=== PATIENT | male | born 1970 | race Caucasian/White ===

== ENCOUNTER 2025-04-27 12:54 | Inpatient (IN) | payer OTHER ==
[~2025-04-27] VITALS: Ht 180.3 cm; Wt 104.4 kg
[2025-04-27 13:58] LABS: PLATELET COUNT (AUTO) 201 K/uL (150-450); RED BLOOD CELL COUNT(AUTO) 6.38 MIL/uL (4.50-5.90); RED CELL DISTRIBUTION WIDTH 14.8 % (11.5-14.5); WHITE BLOOD COUNT (AUTO) 7.2 K/uL (4.5-11.0)
[2025-04-27 14:00] LABS: CALCIUM, TOTAL 8.5 mg/dL (8.8-10.5); CREATININE 1.4 mg/dL (0.60-1.30); GLOMERULAR FILTR. RATE CALC 53.0 mL/min (>60); GLUCOSE,RANDOM 190.0 mg/dL (70-110); SODIUM SERUM 132.0 mmol/L (136-145); UREA NITROGEN, BLOOD 34.0 mg/dL (7-18)
[2025-04-27] MEDS: SODIUM CHLORIDE 0.9% 1,000 ML IV ONE (15:34)
[2025-04-27 15:39] LABS: TROPONIN I-HIGH SENSITIVITY 25 ng/L (<76)
[2025-04-27 15:49] LABS: ASPARTATE AMINOTRANSFERASE 33.0 U/L (15-37); CREATINE KINASE, TOTAL ONLY 85.0 U/L (39-308); TOTAL PROTEIN, SERUM 7.8 g/dL (6.4-8.2)
[2025-04-27] MEDS ORDERED: NOREPINEPHRINE 8 MG/0.9 % NACL 250 ML IV PRN (18:45)
[2025-04-27] MEDS: FUROSEMIDE 20 MG/2 ML VIAL IVP ONE (18:50)
[2025-04-27 19:11] LABS: APPEARANCE,URINE CLEAR (CLEAR); GLUCOSE, URINE (UA) >=1000 mg/dL (NEGATIVE); LEUKOCYTE ESTERASE ,URINE NEGATIVE (NEGATIVE); NITRATE,URINE NEGATIVE (NEGATIVE); OCCULT BLOOD,URINE NEGATIVE (NEGATIVE); SPECIFIC GRAVITIY, URINE 1.011 (1.003-1.030)
[2025-04-27] MEDS ORDERED: SACU1TAB7 PO (19:13)
[2025-04-27] MEDS ORDERED: SPIR-37 PO (19:13)
[2025-04-27] MEDS ORDERED: VERI5TAB PO (19:13)
[2025-04-27] MEDS ORDERED: EMPA10TA3 PO (19:13)
[2025-04-27] MEDS ORDERED: FURO20TA5 PO (19:13)
[2025-04-27 19:33] LABS: SQUAMOUS EPITHELIAL CELL,UR Rare /LPF (None Seen)
[2025-04-27 19:58] LABS: TROPONIN I-HIGH SENSITIVITY 25 ng/L (<76)
[2025-04-27] MEDS ORDERED: ALBUMIN HUMAN 25%-25GM/100ML 100 ML IV ONE (21:00)
[2025-04-27] MEDS: SODIUM CHLORIDE 0.9% 250 ML IV ONE (21:21)
[2025-04-27] MEDS: ALBUMIN HUMAN 5%-12.5GM/250ML 250 ML IV ONE (21:26)
[2025-04-27 22:11] LABS: ALCOHOL, URINE DRUG SCREEN NEGATIVE (NEGATIVE); AMPHET/METH SCREEN,URINE POSITIVE (NEGATIVE); BARBITURATE SCREEN, URINE NEGATIVE (NEGATIVE); CANNABINOID SCREEN,URINE NEGATIVE (NEGATIVE); COCAINE SCREEN,URINE NEGATIVE (NEGATIVE); METHADONE SCREEN, URINE NEGATIVE (NEGATIVE)
[2025-04-27 22:16] LABS: PH,URINE DRUG SCREEN 5.0 (5.0-8.0)
[2025-04-27 23:38] LABS: TROPONIN I-HIGH SENSITIVITY 28 ng/L (<76)
[2025-04-27 23:47] LABS: LACTIC ACID 0.9 mmol/L (0.4-2.0)
[2025-04-28 04:33] VITALS: BP 100/72; PULSE 88; RESP 18; TEMP 97.5; O2SAT 92
[2025-04-28 07:21] VITALS: BP 107/72; PULSE 94; RESP 18; TEMP 97.5; O2SAT 94
[2025-04-28 11:21] VITALS: BP 96/82; PULSE 72; RESP 18; TEMP 97.3; O2SAT 96
[2025-04-28] MEDS ORDERED: MAGNESIUM HYDROXIDE SUSPENSION 30 ML UDCUP PO PRN (16:00)
[2025-04-28] MEDS ORDERED: BISACODYL 10 MG RECTAL RECTAL SUPPOSITORY PR PRN (16:00)
[2025-04-28] MEDS ORDERED: ZOLPIDEM TARTRATE 5 MG TABLET PO PRN (16:00)
[2025-04-28] MEDS ORDERED: HYDROCODONE/ACETAMINOPHEN 5-325 MG TABLET PO PRN (16:00)
[2025-04-28] MEDS ORDERED: IPRATROPIUM BROMIDE 0.5 MG/2.5 ML NEB SOLUTION NEB PRN (16:00)
[2025-04-28] MEDS ORDERED: ACETAMINOPHEN 325 MG TABLET PO PRN (16:00)
[2025-04-28] MEDS ORDERED: MORPHINE SULFATE 4 MG/ML SYRINGE IVP PRN (16:00)
[2025-04-28] MEDS ORDERED: ONDANSETRON HCL 4 MG/2 ML VIAL IVP PRN (16:00)
[2025-04-28] MEDS ORDERED: ALBUTEROL SULFATE 2.5 MG/0.5 ML NEB SOLUTION NEB PRN (16:00)
[2025-04-28] MEDS: HEPARIN SODIUM,PORCINE 5,000 UNITS/ML VIAL SQ SCH (16:06)
[2025-04-28] MEDS: FUROSEMIDE 40 MG/4 ML VIAL IVP ONE (16:06)
[2025-04-28] MEDS: EMPAGLIFLOZIN 10 MG TABLET PO SCH (16:06)
[2025-04-28 16:18] VITALS: BP 101/90; PULSE 79; RESP 18; TEMP 97.7; O2SAT 100
[2025-04-28] MEDS ORDERED: HEPARIN SODIUM,PORCINE 5,000 UNITS/ML VIAL IVP PRN ×2 (18:15)
[2025-04-28 18:39] LABS: PLATELET COUNT (AUTO) 180 K/uL (150-450); RED BLOOD CELL COUNT(AUTO) 6.03 MIL/uL (4.50-5.90); RED CELL DISTRIBUTION WIDTH 14.8 % (11.5-14.5); WHITE BLOOD COUNT (AUTO) 7.2 K/uL (4.5-11.0)
[2025-04-28 18:45] LABS: CALCIUM, TOTAL 8.8 mg/dL (8.8-10.5); CREATININE 0.91 mg/dL (0.60-1.30); GLOMERULAR FILTR. RATE CALC > 60 mL/min (>60); GLUCOSE,RANDOM 139 mg/dL (70-110); SODIUM SERUM 134 mmol/L (136-145); UREA NITROGEN, BLOOD 25 mg/dL (7-18)
[2025-04-28 18:50] LABS: ASPARTATE AMINOTRANSFERASE 26 U/L (15-37); TOTAL PROTEIN, SERUM 7.7 g/dL (6.4-8.2)
[2025-04-28 19:31] VITALS: BP 101/73; PULSE 95; RESP 18; TEMP 97.9; O2SAT 97
[2025-04-28] MEDS: FUROSEMIDE 40 MG/4 ML VIAL IVP SCH (20:40)
[2025-04-28] MEDS: SACUBITRIL/VALSARTAN 49-51 MG TABLET PO SCH (20:40)
[2025-04-28] MEDS: SPIRONOLACTONE 25 MG TABLET PO SCH (20:40)
[2025-04-28] MEDS: HEPARIN SODIUM,PORCINE 5,000 UNITS/ML VIAL IVP ONE (20:41)
[2025-04-28] MEDS: HEPARIN SODIUM 25000 UNITS/D5W 250 ML IV PRN (20:42)
[2025-04-28 23:56] VITALS: BP 103/74; PULSE 87; RESP 18; TEMP 97.5; O2SAT 95
[2025-04-29 04:17] VITALS: BP 97/70; PULSE 85; RESP 18; TEMP 97.7; O2SAT 94
[2025-04-29 05:57] LABS: PLATELET COUNT (AUTO) 181 K/uL (150-450); RED BLOOD CELL COUNT(AUTO) 5.81 MIL/uL (4.50-5.90); RED CELL DISTRIBUTION WIDTH 14.4 % (11.5-14.5); WHITE BLOOD COUNT (AUTO) 7.1 K/uL (4.5-11.0)
[2025-04-29 07:47] VITALS: BP 97/64; PULSE 95; RESP 18; TEMP 97.5; O2SAT 95
[2025-04-29] MEDS: PANTOPRAZOLE SODIUM 40 MG DR TABLET PO SCH (09:00)
[2025-04-29] MEDS ORDERED: [UNRECOGNIZED DRUG - OTHER] PO SCH (09:00)
[2025-04-29 12:00] VITALS: BP 101/70; PULSE 92; RESP 18; TEMP 98; O2SAT 97
[2025-04-29 15:59] VITALS: BP 102/77; PULSE 89; RESP 18; TEMP 98; O2SAT 97
[2025-04-29 19:55] VITALS: BP 112/86; PULSE 94; RESP 18; TEMP 98.4; O2SAT 97
[2025-04-30] VITALS: BP 119/81; PULSE 95; RESP 19; TEMP 98.3; O2SAT 95
[2025-04-30 05:04] VITALS: BP 108/86; PULSE 98; RESP 18; TEMP 98.2; O2SAT 95
[2025-04-30 08:18] VITALS: BP 110/74; PULSE 90; RESP 18; TEMP 98.2; O2SAT 98
[2025-04-30 09:51] LABS: CALCIUM, TOTAL 9.1 mg/dL (8.8-10.5); CREATININE 0.85 mg/dL (0.60-1.30); GLOMERULAR FILTR. RATE CALC > 60 mL/min (>60); GLUCOSE,RANDOM 119 mg/dL (70-110); SODIUM SERUM 134 mmol/L (136-145); UREA NITROGEN, BLOOD 23 mg/dL (7-18)
[2025-04-30] MEDS: APIXABAN 5 MG TABLET PO SCH (09:52)
[2025-04-30 11:44] VITALS: BP 103/69; PULSE 89; RESP 17; TEMP 98.2; O2SAT 98
[2025-04-30] MEDS ORDERED: FUROSEMIDE 40 MG TABLET PO SCH (21:00)
== END 2025-04-30 15:35 | DRG 291 ==
LOC: EMS 12:54 → EDH 18:38 → 6S 04-28 00:22 → 5S 04-28 00:24
PROVIDERS: ADMIT Hospitalist; ATTEND Hospitalist
DX: I11.0 Hypertensive heart disease with heart failure (principal); I50.23 Acute on chronic systolic (congestive) heart failure; D45 Polycythemia vera; F19.10 Other psychoactive substance abuse, uncomplicated; I51.3 Intracardiac thrombosis, not elsewhere classified; I95.9 Hypotension, unspecified; K74.60 Unspecified cirrhosis of liver; E66.9 Obesity, unspecified; Z79.01 Long term (current) use of anticoagulants; Z87.891 Personal history of nicotine dependence; Z91.199 Patient's noncompliance with other medical treatment and regimen due to unspecified reason; Z68.32 Body mass index [BMI] 32.0-32.9, adult
CPT/HCPCS: 71045; 80048; 80053; 80076; 80307; 81001; 82533; 82550; 83605; 83880; 84443; 84484; 85025; 85379; 85610; 85730; 93306; 99285; G0378; J1644; J1938; J7050; P9041; P9046; 36415-L1; 36415-TC